=== PATIENT | male | born 1995 | race Caucasian/White ===

== ENCOUNTER 2021-01-29 23:14 | Emergency (ER) | payer OTHER ==
[2021-01-30 00:25] VITALS: BP 118/70; PULSE 68; RESP 22; TEMP 98.4
== END 2021-01-30 01:00 | disposition home or self-care (01) ==
LOC: EC 23:14
DX: Z02.89 Encounter for other administrative examinations (principal)
CPT/HCPCS: 99499

== ENCOUNTER 2021-04-10 00:13 | Emergency (ER) | payer OTHER ==
[2021-04-10 00:27] VITALS: BP 133/66; PULSE 74; RESP 22; TEMP 97.9
== END 2021-04-10 00:58 ==
LOC: EC 00:13
DX: Z53.21 Procedure and treatment not carried out due to patient leaving prior to being seen by health care provider (principal); Z02.83 Encounter for blood-alcohol and blood-drug test
CPT/HCPCS: 99499

== ENCOUNTER 2021-08-07 18:18 | Emergency (ER) | payer BC, OTHER ==
[2021-08-07 18:59] VITALS: BP 140/81; PULSE 79; RESP 20; TEMP 98.5
--- NOTE | 2021-08-07 22:09 | ED ---
General Adult HPI - General Chief complaint: Recheck/Abnormal Lab/Rx Stated complaint: [facility]-drug screen Time Seen by Provider: 08/07/21 21:35 Source: patient Mode of arrival: ambulatory Limitations: no limitations - History of Present Illness Initial comments: Patient is a 26-year-old male presenting for drug and alcohol screen. 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 His employer that required him to present for drug and alcohol screening. Patient sustained no injuries and has no complaints at this time. He denies any chest pain, shortness of breath, extremity pain or injury, nausea, vomiting, vision or hearing changes, headache, palpitations, weakness, numbness, tingling. - Related Data Allergies Allergy/AdvReac Type Severity Reaction Status Date / Time No Known Allergies Allergy Verified 08/07/21 18:59 Review of Systems ROS Statement: Those systems with pertinent positive or pertinent negative responses have been documented in the HPI. ROS Other: All systems not noted in ROS Statement are negative. Past Medical History Past Medical History: No Reported History History of Any Multi-Drug Resistant Organisms: None Reported Past Surgical History: No Surgical Hx Reported Past Psychological History: No Psychological Hx Reported Smoking Status: Never smoker Past Alcohol Use History: None Reported Past Drug Use History: None Reported General Exam Limitations: no limitations General appearance: alert, in no apparent distress Head exam: Present: atraumatic, normocephalic, normal inspection Eye exam: Present: normal appearance, EOMI. Absent: scleral icterus Respiratory exam: Present: normal lung sounds bilaterally. Absent: respiratory distress, wheezes, rales, rhonchi, stridor Cardiovascular Exam: Present: regular rate, normal rhythm, normal heart sounds. Absent: systolic murmur, diastolic murmur, rubs, gallop, clicks Neurological exam: Present: alert, oriented X3, CN II-XII intact Psychiatric exam: Present: normal affect, normal mood Skin exam: Present: warm, dry, intact, normal color. Absent: rash Course Vital Signs 08/07/21 18:57 Temperature 98.5 F Pulse Rate 79 Respiratory 20 Rate Blood Pressure 140/81 O2 Sat by Pulse 99 Oximetry Medical Decision Making - Medical Decision Making Patient is a 26-year-old male presenting for drug and alcohol screening. 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 He has no complaints at this time. Exam is WNL. Dr garcia and alcohol screening of been sent out. Patient appears stable for discharge at this time. Report back to ER if any worsening symptoms. Follow-up with your PCP in one week. Answered all questions. Patient conveyed verbal understanding and agreed to the plan. Disposition Clinical Impression: Encounter for drug screening Disposition: HOME SELF-CARE Condition: Good Additional Instructions: Follow-up with PCP this week. Report back to ER if any worsening symptoms Is patient prescribed a controlled substance at d/c from ED?: No Referrals: Selwyn Denton MD [Primary Care Provider] - 1-2 days Time of Disposition: 22:09
== END 2021-08-07 22:17 | disposition home or self-care (01) ==
LOC: EC 18:18
DX: Z02.83 Encounter for blood-alcohol and blood-drug test (principal)
CPT/HCPCS: 99282

== ENCOUNTER 2022-08-09 11:04 | Day surgery (SDC) | payer BC, OTHER ==
[2022-08-08 09:07] VITALS: BMI 18.4
[~2022-08-09 11:04] MED LIST: LACTATED RINGERS 1,000 ML IV SCH
[2022-08-09 11:28] VITALS: TEMP 97.4
[2022-08-09] MEDS ORDERED: LIDOCAINE 1% (10MG/ML) FOR IV START INTRADERMA ONE (11:31)
[2022-08-09] MEDS ORDERED: PROPOFOL 10 MG/ML 20 ML VIAL IV ONE (12:21)
--- NOTE | 2022-08-09 12:32 | P.PCN ---
Date of Procedure: 08/09/22 Procedure(s) Performed: BRIEF HISTORY: Patient is a 27-year-old, pleasant, white male scheduled for an upper endoscopy as a part of evaluation of long-standing history of GERD. He is presently on Prilosec 20 mg daily for the last 1 year with some relief in his symptoms. PROCEDURE PERFORMED: Esophagogastroduodenoscopy with biopsy. PREOPERATIVE DIAGNOSIS: Chronic heartburn of 1 year duration. IV sedation per anesthesia. PROCEDURE: After informed consent was obtained, the patient was brought into the endoscopy unit. IV sedation was administered by Anesthesia under continuous monitoring. Initially the Olympus GIF-140 video endoscope was inserted into the mouth. Esophagus intubated without any difficulty. It was gradually advanced into the stomach and duodenum and carefully examined. The bulb and the second part of the duodenum appeared normal. The scope at this time was withdrawn to the stomach, adequately insufflated with air, and upon careful examination, mucosa of the antrum, had patchy areas of erythema and biopsies were done from this area. Mucosa of the body, cardia and the fundus appeared normal. The scope was then withdrawn into the esophagus. The GE junction was located at 43 cm from the incisors. There were 2 superficial erosions at the GE junction consistent with LA grade B reflux esophagitis. Rest of esophagus appeared normal. Biopsies were done from the distal esophagus and the patient tolerated the procedure well. IMPRESSION: 1. Mild antral gastritis. 2. 2 superficial erosions at the GE junction consistent with LA grade B reflux esophagitis. RECOMMENDATIONS: The findings of this examination were discussed with the patient as well as his family. He was advised to follow with the biopsy results. Recommended to increase omeprazole to 20 mg twice daily for 3 months and then decrease to once a day for maintenance. Follow with the biopsy results. He was briefly educated about diet modification antireflux measures.
[2022-08-09 12:48] VITALS: RESP 15
[2022-08-09 12:59] VITALS: BP 106/68; PULSE 67
== END 2022-08-09 13:19 | disposition home or self-care (01) ==
LOC: ORWHC2ENDO 11:04
PROVIDERS: ATTEND Internal Medicine Gastroenterology
DX: K29.50 Unspecified chronic gastritis without bleeding (principal); K21.00 Gastro-esophageal reflux disease with esophagitis, without bleeding; Z79.899 Other long term (current) drug therapy
CPT/HCPCS: 88305; 43239; J2704